=== PATIENT | female | born 1940 | race Caucasian/White ===

== ENCOUNTER 2019-06-05 08:16 | Observation (INO) ==
[2019-06-05] MEDS ORDERED: methylPREDNISolone 125 MG/2 ML VIAL IVP ONE ×2 (08:34→12:07)
[2019-06-05] MEDS ORDERED: Ipratropium/Albuterol Neb 3 ML IH ONE (08:34)
[2019-06-05] MEDS ORDERED: 0.9 % Sodium Chloride 1,000 ML IVC ONE (08:34)
--- NOTE | 2019-06-05 08:38 | Emergency Department Note ---
Disposition Clinical Impression: Acute exacerbation of chronic obstructive airways disease, Hypoxia Disposition: Admitted As Inpatient Condition: Fair Referrals: Mingo Valladares MD [Primary Care Provider] - Forms: ED Satisfaction Letter Time of Disposition: 10:20 SOB HPI - General Chief Complaint: ED Shortness of Breath/Dyspnea Stated Complaint: shortness of breath Time Seen by Provider: 06/05/19 08:33 Source: patient Mode of arrival: private vehicle Limitations: no limitations Nursing Notes Reviewed: Yes Vital Signs Reviewed: Yes - History of Present Illness Pt Subjective Complaint: shortness of breath, cough Onset (ago): week(s) Context: recent illness (Patient had been diagnosed bronchitis and subsequent pneumonia over the past month. She is been on 2 rounds of antibiotics.) Severity: severe Consistency/Duration: gradually worsening Improves with: bronchodilators (But only briefly) Worsens with: exertion Known history of: COPD Associated symptoms: Reports: cough, wheezing, sputum production. Denies: fever Treatment prior to arrival: oxygen, bronchodilator Cough present: Yes Cough Description: Productive Cough Frequency: Intermittent Sputum production: Yes - Related Data Home oxygen amount: 2 liters Home Medications Medication Instructions Recorded Confirmed Esomeprazole Magnesium [Nexium] 40 mg PO DAILY 07/06/15 06/05/19 Quetiapine Fumarate [Seroquel] 100 mg PO HS 07/06/15 06/05/19 Albuterol Sulfate [Proventil 2 puff IH Q6H PRN 06/24/16 06/05/19 Inhaler] Baclofen [Lioresal] 5 - 10 mg PO Q12H 06/24/16 06/05/19 Propranolol HCl 40 mg PO DAILY 06/24/16 06/05/19 Aspirin [Lo-Dose Aspirin EC] 81 mg PO DAILY 04/12/17 06/05/19 BuPROPion XL (24 HR) [Wellbutrin 150 mg PO QAM 04/12/17 06/05/19 Xl] ALPRAZolam [Xanax 0.25 MG Tablet] 0.25 mg PO QID 02/07/19 06/05/19 Potassium Chloride [Klor-Con 10] 10 meq PO BIDWM 02/07/19 06/05/19 Previous Rx's Medication Instructions Recorded Albuterol Neb [Proventil Neb] 2.5 mg IH Q4HR PRN #30 vial.neb 02/24/19 Albuterol Sulfate [Albuterol 2 puff IH Q4H PRN #1 inhaler 02/24/19 Inhaler] Ondansetron ODT [Zofran ODT] 4 mg SL Q4HR PRN #15 tab.rapdis 04/03/19 Allergies Allergy/AdvReac Type Severity Reaction Status Date / Time doxycycline Allergy Rash Verified 04/03/19 20:29 gabapentin Allergy Hives Verified 04/03/19 20:29 diazepam AdvReac Agitated Verified 02/06/19 22:29 pentazocine [From Talwin] AdvReac Headache Verified 02/06/19 22:29 All systems ED: reviewed and negative except as stated. Constitutional: Denies: fever, chills ENT ED: Denies: ear pain, throat pain, congestion Cardiovascular: Denies: chest pain, palpitations Respiratory: Reports: cough, dyspnea, wheezes Gastrointestinal: Denies: abdominal pain, nausea, vomiting Musculoskeletal: Denies: back pain, neck pain Integumentary: Denies: rash Neurological: Denies: headache Past Medical History - Past Medical History Attestation: Yes The following information was validated with the patient. Source: patient, old records reviewed, obtained from family, nursing notes reviewed Medical history: Reports: arthritis, cancer, COPD, GERD, hyperlipidemia, hypertension, peripheral artery disease, seizures, TIA, other Surgical history: Reports: other (Infusion port) Psychiatric history: Reports: anxiety, depression, previous psychiatric hospitalization PACKER history: Reports: bilateral tubal ligation - Social History Smoking Status: Current every day smoker Smokeless Tobacco Status: No Alcohol use: Reports: none Drug use: Reports: none Physical Exam - General Limitations: no limitations General appearance: alert, other (Tachypneic) - Head Head exam: atraumatic, normocephalic, normal inspection - Eye Eye exam: Present: normal appearance, PERRL, EOMI. Absent: scleral icterus, conjunctival injection - ENT ENT exam: normal exam, normal oropharynx, mucous membranes moist, normal external ear exam - Neck Neck exam: Present: normal inspection, full ROM, trachea midline - Chest Chest inspection: Present: normal inspection, symmetric chest wall rise. Absent: tenderness - Respiratory Respiratory exam: Present: respiratory distress (Tachypnea, moist cough heard), wheezes, prolonged expiratory phase - Cardiovascular Cardiovascular exam: Present: regular rate, normal rhythm, normal heart sounds - Abdominal Exam Abdominal exam: Present: soft, Non-Tender, normal bowel sounds - Extremities Exam Extremities exam: Present: normal inspection. Absent: pedal edema - Neurological Exam Neurological exam: Present: alert, oriented X3 - Psychiatric Psychiatric exam: Present: normal affect, normal mood - Skin Skin exam: Present: warm, dry Course Course Narrative: Patient presents with shortness of breath and wheezing and dyspnea on exertion. She is normally on oxygen at night at home but she is been using it all day as well. She is also using her home aerosol treatments. Despite all of this she continues to have progressively worsening shortness of breath. She was diagnosed with bronchitis and then pneumonia over the past month. She said 2 rounds of antibiotics. When she is on the steroid she seems to do better but then when she comes off steroids she gets worse again. Based on the patient's story things are significantly worse over the past few days. Sats dropped on exertion here in the department. Audible wheezing. Vigorous moist cough noted. She does continue to smoke. She is going need to be admitted to the hospital because she is already basically maximizing therapy at home and still getting worse. We will get the shortness of breath workup. We will talk with the hospitalist once the results are back. - Reevaluation(s) Reevaluation #1: Labs look fine. Chest x-ray came back showing some persistence of patchiness in both lungs. This may be residual imaging changes secondary to the recent pneumonia. Radiology is recommending CT of the chest at some point to make sure there is not tumor. Patient is clinically better after treatments but still wanting admission. I have discussed the case with the hospitalist. We will start the patient on Zithromax to cover atypicals since she is already been on an amoxicillin based antibiotic and the cephalosporins. I will go ahead and ordered a CT of the chest now so weak it done on her way to the floor. Time: 10:19 - Consultations Consultation #1: Dr. Cutler, hospitalist - I discussed the case with the hospitalist. He is accepting the patient for admission. We will use azithromycin. Time: 10:16 Vital Signs Temperature 97.3 F L 06/05/19 08:20 Pulse Rate 85 06/05/19 08:20 Respiratory Rate 24 06/05/19 08:20 Blood Pressure 141/88 06/05/19 08:20 O2 Sat by Pulse Oximetry 85 06/05/19 08:20 Temperature 97.3 F L 06/05/19 08:20 Pulse Rate 67 06/05/19 10:25 Respiratory Rate 22 06/05/19 10:25 Blood Pressure 121/79 06/05/19 10:25 O2 Sat by Pulse Oximetry 96 06/05/19 10:25 Oxygen Delivery Oxygen Delivery Nasal Cannula Shortness of Breath/Dyspnea - Medical Records Medical records reviewed: Yes I reviewed the patient's medical records. - Lab Data Lab results reviewed: Yes I reviewed the patient's lab results. Result diagrams: 06/05/19 08:56 06/05/19 08:56 Lab Results 06/05/19 06/05/19 06/05/19 Range/Units 08:56 08:56 08:56 WBC 13.1 H (4.3-11.1) K/mcL RBC 4.68 (3.82-4.97) M/mcL Hgb 15.1 (11.5-15.4) g/dL Hct 45.7 H (35.3-44.9) % MCV 97.6 (83.0-100.0) fL MCH 32.3 (28.0-33.3) pg MCHC 33.0 (31.6-35.5) g/dL RDW 14.6 H (11.5-14.5) % Plt Count 322 (140-400) K/mcL MPV 9.6 (9.4-12.4) fL Immature Gran % 0.5 (0-4) % Seg Neutrophils % 68.2 % Lymphocytes % 19.7 % Monocytes % 10.0 % Eosinophils % 1.1 % Basophils % 0.5 % Neutrophils # 8.9 (1.6-8.9) K/mcL Lymphocytes # 2.6 (0.6-4.6) K/mcL Monocytes # 1.3 (0.0-1.3) K/mcL Eosinophils # 0.1 (0.0-0.6) K/mcL Basophils # 0.1 (0.0-0.2) K/mcL Sodium 138 (136-145) mEq/L Potassium 4.7 (3.5-5.1) mEq/L Chloride 101 (98-107) mEq/L Carbon Dioxide 32 H (23-29) mEq/L BUN 23 (8-23) mg/dL Creatinine 0.67 (0.60-1.20) mg/dL Est GFR ( Amer) > 60 (> 60) Est GFR (Non-Af Amer) > 60 (> 60) BUN/Creatinine Ratio 34 H (6-26) Glucose 87 (70-105) mg/dL Calculated Osmolality 289 (280-300) Lactic Acid 1.4 (0.5-2.2) mmol/L Calcium 9.4 (8.6-10.3) mg/dL Troponin I < 0.03 (< 0.04) ng/mL B-Natriuretic Peptide (Less than 100) pg/mL 06/05/19 Range/Units 08:56 WBC (4.3-11.1) K/mcL RBC (3.82-4.97) M/mcL Hgb (11.5-15.4) g/dL Hct (35.3-44.9) % MCV (83.0-100.0) fL MCH (28.0-33.3) pg MCHC (31.6-35.5) g/dL RDW (11.5-14.5) % Plt Count (140-400) K/mcL MPV (9.4-12.4) fL Immature Gran % (0-4) % Seg Neutrophils % % Lymphocytes % % Monocytes % % Eosinophils % % Basophils % % Neutrophils # (1.6-8.9) K/mcL Lymphocytes # (0.6-4.6) K/mcL Monocytes # (0.0-1.3) K/mcL Eosinophils # (0.0-0.6) K/mcL Basophils # (0.0-0.2) K/mcL Sodium (136-145) mEq/L Potassium (3.5-5.1) mEq/L Chloride (98-107) mEq/L Carbon Dioxide (23-29) mEq/L BUN (8-23) mg/dL Creatinine (0.60-1.20) mg/dL Est GFR ( Amer) (> 60) Est GFR (Non-Af Amer) (> 60) BUN/Creatinine Ratio (6-26) Glucose (70-105) mg/dL Calculated Osmolality (280-300) Lactic Acid (0.5-2.2) mmol/L Calcium (8.6-10.3) mg/dL Troponin I (< 0.04) ng/mL B-Natriuretic Peptide 65 (Less than 100) pg/mL - Radiology Data Radiology results reviewed: Yes I reviewed the patient's radiology results. - EKG Data EKG attestation: Yes I reviewed and interpreted this EKG. EKG results narrative: Twelve-lead EKG performed at 8:32 AM. Ordered, reviewed and interpreted by ED physician shows sinus rhythm at a rate of 70. Normal axis. Good hour progression across precordium. Pretty wavy baseline due to her breathing pattern and cough. No obvious ischemic changes.
[2019-06-05 09:05] LABS: Basophils # 0.1 K/mcL (0.0-0.2); Basophils % 0.5 %; Eosinophils # 0.1 K/mcL (0.0-0.6); Eosinophils % 1.1 %; Hematocrit 45.7 % (35.3-44.9); Hemoglobin 15.1 g/dL (11.5-15.4); Immature Granulocytes % 0.5 % (0-4); Lymphocytes # 2.6 K/mcL (0.6-4.6); Lymphocytes % 19.7 %; Mean Corpuscular Hemoglobin 32.3 pg (28.0-33.3); Mean Corpuscular Volume 97.6 fL (83.0-100.0); Mean Platelet Volume 9.6 fL (9.4-12.4); Monocytes # 1.3 K/mcL (0.0-1.3); Platelet Count 322 K/mcL (140-400); Red Blood Count 4.68 M/mcL (3.82-4.97); Red Cell Distribution Width 14.6 % (11.5-14.5); Segmented Neutrophils % 68.2 %; White Blood Count 13.1 K/mcL (4.3-11.1)
[2019-06-05 09:06] LABS: Neutrophils # 8.9 K/mcL (1.6-8.9)
[2019-06-05 09:18] LABS: BUN/Creatinine Ratio 34 (6-26); Blood Urea Nitrogen 23 mg/dL (8-23); Calcium 9.4 mg/dL (8.6-10.3); Carbon Dioxide 32 mEq/L (23-29); Chloride 101 mEq/L (98-107); Glucose 87 mg/dL (70-105); Osmolality,Calculated 289 (280-300); Potassium 4.7 mEq/L (3.5-5.1); Sodium 138 mEq/L (136-145); eGFR For African Americans > 60 (> 60); eGFR For Non-African Americans > 60 (> 60)
[2019-06-05 09:23] LABS: Troponin I < 0.03 ng/mL (< 0.04)
[2019-06-05] MEDS ORDERED: Azithromycin 500 MG in D5% in Water 250 ML IVPB ONE (10:15)
[2019-06-05] MEDS ORDERED: Isovue-370 500 ML BOTTLE IVP ONE (10:28)
[2019-06-05] MEDS ORDERED: 0.9 % Sodium Chloride 1,000 ML IVC SCH (12:07)
[2019-06-05] MEDS ORDERED: Naloxone 0.4 MG/ML INJ IVP PRN (12:07)
[2019-06-05] MEDS: Ipratropium/Albuterol Neb 3 ML IH SCH ×4 (13:28→23:32)
[2019-06-05] MEDS: Nicotine 21 MG PATCH.TD24 TD SCH (13:38)
--- NOTE | 2019-06-05 15:46 | Electrocardiograph Report ---
[place] [address] Test Date: 2019-06-05 Pat Name: Carissa Smith Department: EDP-16 Room: [facility] Gender: F [employer]ic: : [id number] Requested By: Jean Cyr Order Number: [id number] Reading MD: Harley Altman Measurements Intervals [place] Rate: 70 P: 83 NM: 151 QRS: -58 QRSD: 100 T: 79 QT: 410 QTc: 443 Interpretive Statements Sinus rhythm LAD, consider left anterior fascicular block Electronically Signed On 06-05-2019 15:45:10 EDT by Harley Altman
--- NOTE | 2019-06-05 15:47 | Internal Med History&Physical ---
Date of Encounter: 06/05/19 Time of Encounter: 15:15 Assessment and Plan (1) Dyspnea Current visit: Yes Status: Acute Etiology yet to be determined. IV Zithromax has been started. Pro-calcitonin will be done to further evaluate leukocytosis. D-dimer will be ordered and further workup as needed. Qualifiers: Dyspnea type: shortness of breath Qualified Code(s): R06.02 - Shortness of breath; R06.00 - Dyspnea, unspecified; R06.01 - Orthopnea (2) COPD (chronic obstructive pulmonary disease) Current visit: Yes Status: Chronic Duonebs have been ordered. Qualifiers: COPD type: unspecified COPD Qualified Code(s): J44.9 - Chronic obstructive pulmonary disease, unspecified (3) Lung cancer Current visit: No Status: Acute Cell type unknown. Chest CT in emergency room showed multiple liver lesions concerning for metastases. MRI to further delineate was recommended. This can be done as an outpatient. Qualifiers: Laterality: unspecified laterality Lung location: unspecified part of lung Qualified Code(s): C34.90 - Malignant neoplasm of unspecified part of unspecified bronchus or lung (4) Hypertension Current visit: No Status: Chronic Continue propranolol. Blood pressure will be monitored. Qualifiers: Hypertension type: essential hypertension Qualified Code(s): I10 - Essential (primary) hypertension (5) Anxiety and depression Current visit: Yes Status: Acute Continue Rx as at home. Internal Medicine - H&P: HPI Chief complaint: Cough and dyspnea Admitted From: Emergency Dept Plans for Post Hospital Care: Home History of present illness: Ms. Smith is a 78 year old female who came to emergency room stating she had cough and dyspnea onset approximately one month previously. She reports receiving 2 courses of antibiotics from her PCP office without significant improvement. She states the cough is minimally productive. She reports no hemoptysis or significant pain. She has had occasional sensation of fever. She was evaluated in emergency room and was felt to have exacerbation of COPD. She was admitted to [facility] floor for ongoing care needs. She states she smoked from age [age] up to one half pack per day. She wears oxygen at bedtime and when necessary during the daytime. She has a diagnosis of MATILDE and uses BiPAP at bedtime. She reports a diagnosis of lung cancer was made July 2018. She underwent XRT followed by chemotherapy at [facility]. She reports her last oncology visit was approximately 3 months ago. She does not know the cell type of the malignancy. She was told following the XRT and chemotherapy that there was "no more cancer". Past Med Surg Social Fam HX - Past Medical History Medical history: arthritis, cancer, COPD, GERD, hyperlipidemia, hypertension, peripheral artery disease, seizures, TIA, other Additional medical history: lung cancer-completed chemo and radiation Psychiatric history: anxiety, depression, previous psychiatric hospitalization - Past Surgical History Surgical History: other (Infusion port) Additional surgical history: stent in left hip. cataracts - Social History Smoking Status: Current every day smoker Smokeless Tobacco Status: No Alcohol use: none Drug use: none - Family History Mother Adopted: No Family Member Ethnicity: Non- Living Status: Hx Family Cancer: Yes Internal Medicine - H&P: Meds Esomeprazole Magnesium [Nexium] 40 mg PO DAILY 07/06/15 [History] Quetiapine Fumarate [Seroquel] 100 mg PO HS 07/06/15 [History] Albuterol Sulfate [Proventil Inhaler] 2 puff IH Q6H PRN 06/24/16 [History] Baclofen [Lioresal] 5 - 10 mg PO Q12H 06/24/16 [History] Propranolol HCl 40 mg PO DAILY 06/24/16 [History] Aspirin [Lo-Dose Aspirin EC] 81 mg PO DAILY 04/12/17 [History] BuPROPion XL (24 HR) [Wellbutrin Xl] 150 mg PO QAM 04/12/17 [History] ALPRAZolam [Xanax 0.25 MG Tablet] 0.25 mg PO QID 02/07/19 [History] Potassium Chloride [Klor-Con 10] 10 meq PO BIDWM 02/07/19 [History] Albuterol Neb [Proventil Neb] 2.5 mg IH Q4HR PRN #30 vial.neb 02/24/19 [Rx] Albuterol Sulfate [Albuterol Inhaler] 2 puff IH Q4H PRN #1 inhaler 02/24/19 [Rx] Ondansetron ODT [Zofran ODT] 4 mg SL Q4HR PRN #15 tab.rapdis 04/03/19 [Rx] Allergy/AdvReac Type Severity Reaction Status Date / Time doxycycline Allergy Rash Verified 04/03/19 20:29 gabapentin Allergy Hives Verified 04/03/19 20:29 diazepam AdvReac Agitated Verified 02/06/19 22:29 pentazocine [From Talwin] AdvReac Headache Verified 02/06/19 22:29 All Systems PM: A 10-system review of systems was performed and is negative for pertinent findings except as documented above in the HPI. Review of systems: Gen.: Her weight has decreased from 66.224 kg at the July 2014 [facility] hospitalization to present weight of 61.235 kg. Cardiovascular: She has history of hypertension. She reports EST October 2013 at [facility] was negative for ischemia. She reports heart catheter 2006 showed no significant CAD. She denies DVT pulmonary embolus or heart failure. Respiratory: As per history of present illness GI: She has occasional GERD symptoms but denies disorders of her liver gallbladder or exocrine pancreas : She denies hematuria dysuria or kidney stones Neurologic: She denies large distribution strokes or seizures. Endocrine: She denies diabetes thyroid disease or hyperlipidemia Hematology/oncology: She denies blood disorders cancers or anemia Psychiatric: She has anxiety and depression Musk skeletal: She has minimal arthritis. She denies gout or osteoporosis or other bone joint or muscle disorders. - Constitutional Vitals: Temp Pulse Resp BP Pulse Ox 97.3 F L 70 26 124/74 97 06/05/19 08:20 06/05/19 11:00 06/05/19 13:28 06/05/19 11:00 06/05/19 13:28 Exam: Gen.: She is a well-developed well-nourished female lying in bed who appears in no acute distress HEENT: Head is atraumatic and normocephalic. Eyes: EOMI. There is no scleral icterus. Mouth: Mucosa is moist. Neck: Supple and nontender. There is no thyromegaly or adenopathy noted. Heart: Regular without murmurs gallops or ectopics Lungs: No wheezes or crackles are heard. Abdomen: Soft and nontender. No masses or guarding are noted. Extremities: There is no cyanosis edema or clubbing noted. Dorsalis pedis and posterior tibial pulses are trace palpable bilaterally. Neurologic: Mental status: She is talkative and a good historian. Cranial nerves: Smile is symmetric. Forehead wrinkles bilaterally. Tongue protrudes midline. EOMI. Motor: There is no pronator drift. Cerebellar: Finger to nose is intact bilaterally. Skin: Warm and dry Internal Med - H&P Results - Labs CBC & Chem 7: 06/05/19 08:56 06/05/19 08:56 Labs: Short CBC 06/05/19 Range/Units 08:56 WBC 13.1 H (4.3-11.1) K/mcL Hgb 15.1 (11.5-15.4) g/dL Hct 45.7 H (35.3-44.9) % Plt Count 322 (140-400) K/mcL Neutrophils # 8.9 (1.6-8.9) K/mcL BMP 06/05/19 08:56 Sodium 138 Potassium 4.7 Chloride 101 Carbon Dioxide 32 H BUN 23 Creatinine 0.67 Glucose 87 Calcium 9.4 Cardiac Enzymes 06/05/19 Range/Units 08:56 Troponin I < 0.03 (< 0.04) ng/mL - Impressions ITS Impressions Chest X-Ray 06/05/19 08:34 IMPRESSION: 1. Persistent patchy density involving the right left mid lung. Even though this was seen on the prior exam it is a new finding as seen on the chest x-ray dated 02/06/2019 and likely represents scarring. However, I would suggest CT scan for further evaluation as a neoplastic process cannot be excluded. D/ / Norman Norman MD / Norman Norman MD Interpreting Provider: Norman Norman MD Chest CT 06/05/19 10:28 IMPRESSION: 1. The left pulmonary opacities identified on the chest radiograph may represent posttreatment changes related to history of lung cancer. Correlation with prior CT imaging is recommended if prior exams are available. 2. Multifocal irregular hepatic hypodense lesions which could represent possible metastatic disease. There are some more simple cystic lesions in the left hepatic lobe. If clinically indicated further evaluation with MRI of the liver with/without contrast is recommended to characterize the ill-defined lesions. 3. Nonspecific patchy right upper and lower lobe peribronchial opacities and mucous plugging which could represent chronic changes. An acute multifocal small subsegmental bronchiolitis cannot be excluded. There is no lobar pneumonia. 4. Left lower lobe subpleural 4 mm solid nodule, attention on follow-up exams. 5. No significant thoracic lymphadenopathy. 6. Coronary and aortic atherosclerosis with fusiform 3.8 cm dilatation of the ascending thoracic aorta. D/ / 06/05/2019 12:47:52 Kishan Esquivel MD / [facility] Interpreting Provider: Kishan Esquivel MD
[2019-06-05] MEDS: ALPRAZolam 0.25 MG TABLET PO SCH ×2 (17:19→21:26)
[2019-06-05] MEDS: predniSONE 20 MG TABLET PO SCH (17:19)
[2019-06-05] MEDS ORDERED: Mag Hydrox/Al Hydrox/Simeth 30 ML UDC PO ONE (18:44)
[2019-06-05] MEDS: Lactobacillus 1 EACH CAP.SPRINK PO SCH (21:26)
[2019-06-06] MEDS: Ipratropium/Albuterol Neb 3 ML IH SCH ×2 (04:00→07:35)
[2019-06-06] MEDS ORDERED: *HR* Enoxaparin 40 MG/0.4 ML SYRINGE SQ SCH (06:00)
[2019-06-06 06:57] LABS: Basophils % 0.1 %; Hematocrit 41.2 % (35.3-44.9); Hemoglobin 13.6 g/dL (11.5-15.4); Immature Granulocytes % 0.8 % (0-4); Lymphocytes # 1.2 K/mcL (0.6-4.6); Lymphocytes % 5.6 %; Mean Corpuscular Hemoglobin 31.6 pg (28.0-33.3); Mean Corpuscular Volume 95.8 fL (83.0-100.0); Mean Platelet Volume 9.8 fL (9.4-12.4); Monocytes # 1.6 K/mcL (0.0-1.3); Monocytes % 7.2 %; Neutrophils # 18.7 K/mcL (1.6-8.9); Platelet Count 302 K/mcL (140-400); Red Cell Distribution Width 14.6 % (11.5-14.5); Segmented Neutrophils % 86.3 %; White Blood Count 21.7 K/mcL (4.3-11.1)
[2019-06-06 07:05] VITALS: BP 129/81
[2019-06-06 07:23] LABS: Alanine Aminotransferase 11 Units/L (7-52); Albumin 3.2 g/dL (3.5-5.7); Albumin/Globulin Ratio 1.3 (1.1-2.2); Alkaline Phosphatase 78 Units/L (34-104); Aspartate Amino Transferase 12 Units/L (13-39); BUN/Creatinine Ratio 31 (6-26); Bilirubin,Total 0.2 mg/dL (0.3-1.0); Blood Urea Nitrogen 15 mg/dL (8-23); Calcium 9.3 mg/dL (8.6-10.3); Carbon Dioxide 29 mEq/L (23-29); Chloride 102 mEq/L (98-107); Globulin 2.5 g/dL (2.4-3.5); Glucose 119 mg/dL (70-105); Osmolality,Calculated 284 (280-300); Potassium 4.5 mEq/L (3.5-5.1); Sodium 136 mEq/L (136-145); Total Protein 5.7 g/dL (6.4-8.9); eGFR For African Americans > 60 (> 60); eGFR For Non-African Americans > 60 (> 60)
[2019-06-06] MEDS ORDERED: Ipratropium/Albuterol Neb 3 ML ONE (07:31)
[2019-06-06] MEDS: Nicotine 21 MG PATCH.TD24 TD SCH (08:39)
[2019-06-06] MEDS: ALPRAZolam 0.25 MG TABLET PO SCH (08:39)
[2019-06-06] MEDS: predniSONE 20 MG TABLET PO SCH (08:40)
[2019-06-06] MEDS: Lactobacillus 1 EACH CAP.SPRINK PO SCH (08:40)
[2019-06-06] MEDS ORDERED: Nicotine 21 MG PATCH.TD24 TD SCH (09:00)
[2019-06-06] MEDS ORDERED: Aspirin Enteric Coated 81 MG Tablet PO SCH (09:00)
[2019-06-06] MEDS ORDERED: BuPROPion XL (24 HR) 150 MG TABLET PO SCH (09:00)
[2019-06-06 09:14] LABS: Thyroid Stimulating Hormone 0.608 mcIU/mL (0.340-5.600)
--- NOTE | 2019-06-06 09:34 | Discharge Summary ---
Orders not resulted at time of discharge: Pending orders 06/05/19 08:56 Culture,Blood [BC] Stat Date of Encounter: 06/06/19 Time of Encounter: 09:20 - Discharge Diagnosis (1) Acute exacerbation of chronic obstructive airways disease Priority: Primary Status: Acute (2) COPD (chronic obstructive pulmonary disease) Priority: Secondary Status: Chronic Qualifiers: COPD type: unspecified COPD Qualified Code(s): J44.9 - Chronic obstructive pulmonary disease, unspecified (3) Lung cancer Priority: Secondary Status: Acute Qualifiers: Laterality: unspecified laterality Lung location: unspecified part of lung Qualified Code(s): C34.90 - Malignant neoplasm of unspecified part of unspecified bronchus or lung (4) Hypertension Priority: Secondary Status: Chronic Qualifiers: Hypertension type: essential hypertension Qualified Code(s): I10 - Essential (primary) hypertension (5) Anxiety and depression Priority: Secondary Status: Acute Hospital course: Ms. Smith is a 78 year old female who came to emergency room stating she had cough and dyspnea onset approximately one month previously. She reports receiving 2 courses of antibiotics from her PCP office without significant improvement. She states the cough is minimally productive. She reports no hemoptysis or significant pain. She has had occasional sensation of fever. She was evaluated in emergency room and was felt to have exacerbation of COPD. She was admitted to [facility] for ongoing care needs. Initial orders were written by the emergency room physician. I saw her on June 05 and performed a history and physical. She was given a dose of IV Zithromax and Solu-Medrol in emergency room. Pro-calcitonin level returned WNL at 0.02. She remained afebrile. When I saw her on June 06 she stated she felt significantly improved and wished to be discharged home which I felt was reasonable. WBC had risen to 21.7 with left shift on differential but I felt this was likely due to steroid use. D-dimer returned WNL at 475. TSH was normal at 0.608. I discussed the chest CT findings in emergency room showing abnormality of the liver with possible metastatic disease. Her PCP and/or oncologist can further address with MRI or other studies as recommended. She will be discharged home and follow with her PCP Dr. Valladares within 1 week. She will continue oxygen use as at home. - Time Spent with Patient Total time spent providing and/or coordinating discharge services: - Discharge Medications Prescriptions: Continued Albuterol Sulfate [Proventil Inhaler] 2 puff IH Q6H PRN PRN Reason: Shortness Of Breath Propranolol HCl 40 mg PO DAILY Baclofen [Lioresal] 5 - 10 mg PO Q12H BuPROPion XL (24 HR) [Wellbutrin Xl] 150 mg PO QAM Aspirin [Lo-Dose Aspirin EC] 81 mg PO DAILY ALPRAZolam [Xanax 0.25 MG Tablet] 0.25 mg PO QID Potassium Chloride [Klor-Con 10] 10 meq PO BIDWM Quetiapine Fumarate [Seroquel] 100 mg PO HS Esomeprazole Magnesium [Nexium] 40 mg PO DAILY Albuterol Neb [Proventil Neb] 2.5 mg IH Q4HR PRN #30 vial.neb PRN Reason: shortness of breath Albuterol Sulfate [Proventil Inhaler] 2 puff IH Q4H PRN #1 inhaler PRN Reason: Cough Ondansetron ODT [Zofran ODT] 4 mg SL Q4HR PRN #15 tab.rapdis PRN Reason: Vomiting Home Medications: Esomeprazole Magnesium [Nexium] 40 mg PO DAILY 07/06/15 [History] Quetiapine Fumarate [Seroquel] 100 mg PO HS 07/06/15 [History] Albuterol Sulfate [Proventil Inhaler] 2 puff IH Q6H PRN 06/24/16 [History] Baclofen [Lioresal] 5 - 10 mg PO Q12H 06/24/16 [History] Propranolol HCl 40 mg PO DAILY 06/24/16 [History] Aspirin [Lo-Dose Aspirin EC] 81 mg PO DAILY 04/12/17 [History] BuPROPion XL (24 HR) [Wellbutrin Xl] 150 mg PO QAM 04/12/17 [History] ALPRAZolam [Xanax 0.25 MG Tablet] 0.25 mg PO QID 02/07/19 [History] Potassium Chloride [Klor-Con 10] 10 meq PO BIDWM 02/07/19 [History] Albuterol Neb [Proventil Neb] 2.5 mg IH Q4HR PRN #30 vial.neb 02/24/19 [Rx] Albuterol Sulfate [Proventil Inhaler] 2 puff IH Q4H PRN #1 inhaler 02/24/19 [Rx] Ondansetron ODT [Zofran ODT] 4 mg SL Q4HR PRN #15 tab.rapdis 04/03/19 [Rx] Allergies/Adverse Reactions: Allergy/AdvReac Type Severity Reaction Status Date / Time doxycycline Allergy Rash Verified 04/03/19 20:29 gabapentin Allergy Hives Verified 04/03/19 20:29 diazepam AdvReac Agitated Verified 02/06/19 22:29 pentazocine [From Talwin] AdvReac Headache Verified 02/06/19 22:29 Date of admission: 06/05/19 10:33 Primary care physician: Mingo Valladares MD - Constitutional Vitals: Temp Pulse Resp BP Pulse Ox 97.8 F 79 18 129/81 97 06/06/19 07:01 06/06/19 07:01 06/06/19 07:35 06/06/19 07:01 06/06/19 07:35 - Patient Status Disposition: Home, Self-Care Condition: Fair - Discharge Instructions Follow Up With: Mingo Valladares MD [Primary Care Provider] - 1 week - Diet and Activity Activity: resume usual activities as tolerated, wear oxygen at night Diet: advance to your usual diet
[2019-06-06] MEDS ORDERED: Azithromycin 500 MG in D5% in Water 250 ML IVPB SCH (10:00)
== END 2019-06-06 12:20 | disposition home or self-care (01) ==
LOC: EMEROOPIK 08:16 → INPPIK 08:16
PROVIDERS: ADMIT Internal Medicine; ATTEND Internal Medicine

== ENCOUNTER 2019-11-30 11:08 | Inpatient (IN) ==
[2019-11-30] MEDS ORDERED: 0.9 % Sodium Chloride 1,000 ML IVC ONE (11:44)
[2019-11-30] MEDS ORDERED: Ondansetron 4 MG/2 ML VIAL IVP ONE (11:44)
[2019-11-30 12:07] LABS: Basophils % 0.3 %; Eosinophils % 0.1 %; Hemoglobin 16.5 g/dL (11.5-15.4); Immature Granulocytes % 0.3 % (0-4); Lymphocytes # 1.2 K/mcL (0.6-4.6); Lymphocytes % 8.6 %; Mean Corpuscular HGB Conc 34.4 g/dL (31.6-35.5); Mean Corpuscular Hemoglobin 32.5 pg (28.0-33.3); Mean Corpuscular Volume 94.7 fL (83.0-100.0); Mean Platelet Volume 10.3 fL (9.4-12.4); Neutrophils # 10.8 K/mcL (1.6-8.9); Platelet Count 481 K/mcL (140-400); Red Blood Count 5.07 M/mcL (3.82-4.97); Red Cell Distribution Width 14.5 % (11.5-14.5); Segmented Neutrophils % 76.7 %; White Blood Count 14.1 K/mcL (4.3-11.1)
[2019-11-30 12:27] LABS: Alanine Aminotransferase 52 Units/L (7-52); Albumin 3.4 g/dL (3.5-5.7); Albumin/Globulin Ratio 1.2 (1.1-2.2); Alkaline Phosphatase 479 Units/L (34-104); Aspartate Amino Transferase 95 Units/L (13-39); BUN/Creatinine Ratio 26 (6-26); Bilirubin,Total 0.7 mg/dL (0.3-1.0); Blood Urea Nitrogen 14 mg/dL (8-23); Calcium 9.7 mg/dL (8.6-10.3); Carbon Dioxide 27 mEq/L (23-29); Chloride 99 mEq/L (98-107); Globulin 2.8 g/dL (2.4-3.5); Glucose 125 mg/dL (70-105); Lipase 58 Units/L (11-82); Osmolality,Calculated 286 (280-300); Potassium 3.4 mEq/L (3.5-5.1); Sodium 137 mEq/L (136-145); Total Protein 6.2 g/dL (6.4-8.9); eGFR For African Americans > 60 (> 60); eGFR For Non-African Americans > 60 (> 60)
[2019-11-30] MEDS ORDERED: Naloxone 0.4 MG/ML INJ IVP PRN (14:48)
[2019-11-30] MEDS ORDERED: Ondansetron 4 MG/2 ML VIAL IVP PRN (14:48)
[2019-11-30] MEDS ORDERED: *HR* Promethazine 25 MG/ML VIAL IVP PRN (14:48)
[2019-11-30] MEDS ORDERED: 0.9 % Sodium Chloride 1,000 ML IV ONE (14:52)
[2019-11-30] MEDS: ALPRAZolam 0.25 MG TABLET PO SCH ×2 (18:14→19:39)
[2019-11-30] MEDS: Nicotine 21 MG PATCH.TD24 TD SCH (18:15)
[2019-11-30] MEDS: Morphine Sulfate Oral CONC 10 MG/0.5 ML ORAL.SYG SL PRN (19:38)
[2019-12-01] MEDS: Morphine Sulfate Oral CONC 10 MG/0.5 ML ORAL.SYG SL PRN ×3 (04:53→21:33)
[2019-12-01 08:33] LABS: Basophils % 0.4 %; Eosinophils % 0.3 %; Hematocrit 44.9 % (35.3-44.9); Immature Granulocytes % 0.5 % (0-4); Lymphocytes # 1.4 K/mcL (0.6-4.6); Mean Corpuscular HGB Conc 33.4 g/dL (31.6-35.5); Mean Corpuscular Hemoglobin 32.1 pg (28.0-33.3); Mean Corpuscular Volume 95.9 fL (83.0-100.0); Mean Platelet Volume 10.4 fL (9.4-12.4); Monocytes # 1.4 K/mcL (0.0-1.3); Monocytes % 12.4 %; Neutrophils # 8.2 K/mcL (1.6-8.9); Platelet Count 395 K/mcL (140-400); Red Blood Count 4.68 M/mcL (3.82-4.97); Red Cell Distribution Width 14.7 % (11.5-14.5); Segmented Neutrophils % 73.4 %; White Blood Count 11.1 K/mcL (4.3-11.1)
[2019-12-01] MEDS: amLODIPine 5 MG TABLET PO SCH (08:34)
[2019-12-01] MEDS: predniSONE 20 MG TABLET PO SCH (08:34)
[2019-12-01] MEDS: ALPRAZolam 0.25 MG TABLET PO SCH ×4 (08:35→21:32)
[2019-12-01] MEDS: Nicotine 21 MG PATCH.TD24 TD SCH (08:59)
[2019-12-01] MEDS ORDERED: Nicotine 21 MG PATCH.TD24 TD SCH (09:00)
[2019-12-01 09:45] LABS: BUN/Creatinine Ratio 22 (6-26); Blood Urea Nitrogen 11 mg/dL (8-23); Calcium 9.1 mg/dL (8.6-10.3); Carbon Dioxide 27 mEq/L (23-29); Chloride 103 mEq/L (98-107); Glucose 87 mg/dL (70-105); Osmolality,Calculated 283 (280-300); Potassium 3.4 mEq/L (3.5-5.1); Sodium 137 mEq/L (136-145); eGFR For African Americans > 60 (> 60); eGFR For Non-African Americans > 60 (> 60)
[2019-12-02 06:58] VITALS: BP 132/86
[2019-12-02] MEDS: Nicotine 21 MG PATCH.TD24 TD SCH (08:13)
[2019-12-02] MEDS: predniSONE 20 MG TABLET PO SCH (08:15)
[2019-12-02] MEDS: amLODIPine 5 MG TABLET PO SCH (08:15)
[2019-12-02] MEDS: ALPRAZolam 0.25 MG TABLET PO SCH (08:15)
[2019-12-02] MEDS: Morphine Sulfate Oral CONC 10 MG/0.5 ML ORAL.SYG SL PRN (08:15)
[2019-12-02 11:26] LABS: BUN/Creatinine Ratio 26 (6-26); Blood Urea Nitrogen 12 mg/dL (8-23); Calcium 9.5 mg/dL (8.6-10.3); Carbon Dioxide 27 mEq/L (23-29); Chloride 103 mEq/L (98-107); Glucose 76 mg/dL (70-105); Osmolality,Calculated 287 (280-300); Potassium 3.3 mEq/L (3.5-5.1); Sodium 139 mEq/L (136-145); eGFR For African Americans > 60 (> 60); eGFR For Non-African Americans > 60 (> 60)
== END 2019-12-02 11:55 | disposition home or self-care (01) | DRG 641 ==
LOC: INPPIK 11:08 → EMEROOPIK 11:08 → INPPIK 13:34
PROVIDERS: ADMIT Family Medicine; ATTEND Family Medicine